=== PATIENT | female | born 1945 | race Caucasian/White ===

== ENCOUNTER 2016-06-26 02:30 | Inpatient (IN) | payer OTHER, MEDICARE ==
[~2016-06-26] VITALS: Ht 165.1 cm; Wt 131.0 kg
[2016-06-26] VITALS (12 sets, daily range): BP systolic 135–189; BP diastolic 53–91
[~2016-06-26 02:30] MED LIST: ADULT LOW DOSE81 M1 PO; ATENOLOL50 MG PO; CLOPIDOGREL75 MG PO; FUROSEMIDE40 MG PO; HYDROCODON-ACE1 EACH PO; METHOCARBAMOL500 MG; PROTONIX40 MG PO; ROBAXIN500 MG PO; TRAMADOL HCL50 MG PO; VITAMIN B-12500 MC2 PO; VITAMIN D1000 INTUN PO; [UNRECOGNIZED DRUG - CODE] IH
[2016-06-26 02:53] LABS: POTASSIUM 4.3 mEq/L (3.7-5.4)
[2016-06-26 03:13] LABS: EOSINOPHIL (%) 0.8 % (0-5); EOSINOPHIL COUNT 0.1 K/uL (0-0.3); HEMATOCRIT 43.7 % (36.0-46.0); IMMATURE GRANULOCYTE (%) 0.5 % (0.0-0.7); IMMATURE GRANULOCYTE COUNT 0.5 K/uL; LYMPHOCYTE COUNT 1.6 K/uL (1.0-2.8); MCH 30.7 PG (29.0-34.0); MCHC 34.3 G/DL (30.0-36.0); MCV 89.5 FL (83-99); MEAN PLAT.VOLUME 10.2 uM^3 (9.5-12.4); MONOCYTE (%) 5.8 % (3-12); MONOCYTE COUNT 0.6 K/uL (0-0.8); NEUTROPHIL COUNT 7.3 K/uL (1.8-6.4); PLATELET COUNT 225 K/uL (156-360); RBC DIS.WIDTH-CV 13.8 % (11.8-14.6); RBC DIS.WIDTH-SD 44.3 % (39-53); RED BLOOD COUNT 4.88 M/uL (3.80-5.20); WHITE BLOOD COUNT 9.6 K/uL (4.1-10.2)
[2016-06-26 03:20] LABS: PROTHROMBIN TIME 10.1 (9.2-11.2); PTT 25.8 (25-32)
[2016-06-26 03:31] LABS: TROP-I INTERPRETATION NEGATIVE; TROPONIN-I < 0.01 ng/mL (0.0-0.30)
[2016-06-26 03:59] LABS: D-DIMER ELISA 0.74 mg/L FEU (< 0.57)
[2016-06-26 04:18] LABS: CHLORIDE 106 mEq/L (99-109); POTASSIUM 5.5 mEq/L (3.7-5.4); SODIUM 139 mEq/L (136-147)
[2016-06-26 04:20] LABS: GLUCOSE 143 mg/dL (70-99)
[2016-06-26 04:21] LABS: ANION GAP 12 MEQ/L (2-14)
[2016-06-26 04:23] LABS: SERUM ETHYL ALCOHOL < 10 mg/dL
[2016-06-26 04:24] LABS: BICARBONATE 23.5 mEq/L (22-26); CARBOXY HGB 1.7 % (0-5); COMMENTS - BLOOD GASES C+A+; DEVICE ROOM AIR; FI02 21 %; METHEMOGLOBIN 1.1 % (0-1.5); PCO2 38 mm Hg (35-45); PO2 70 mm Hg (80-100); SITE RR; TOTAL RESP RATE 21 resp/min
[2016-06-26 04:24] LABS: GFR ESTIMATE (CALCULATED) 52 mL/min/
[2016-06-26 04:26] LABS: UREA NITROGEN (BUN) 19 mg/dL (9-23)
[2016-06-26 04:27] LABS: AMPHETAMINE NEGATIVE (500 ng/mL); BARBITURATES NEGATIVE (200 ng/mL); BENZODIAZEPINES NEGATIVE (150 ng/mL); COCAINE NEGATIVE (150 ng/mL); INTERNAL CONTROLS VALID? YES; METHADONE NEGATIVE (200 ng/mL); METHAMPHETAMINE NEGATIVE (500 ng/mL); OPIATES (MORPHINE) NEGATIVE (100 ng/mL); OXYCODONE NEGATIVE (100 ng/mL); PHENCYCLIDINE NEGATIVE (25 ng/mL); PROPOXYPHENE NEGATIVE (300 ng/mL); THC CANNABINOIDS NEGATIVE (50 ng/mL); TRICYCLIC ANTIDEPRESSANTS NEGATIVE (300 ng/mL)
[2016-06-26 04:27] LABS: SALICYLATE < 5.0 MG/DL (15-30)
[2016-06-26 04:41] LABS: ADD MIUA? NO; BILIRUBIN NEGATIVE; BLOOD NEGATIVE; COLOR YELLOW ((YELLOW)); GLUCOSE (STRIP) NEGATIVE; KETONES NEGATIVE; LEUKOCYTES NEGATIVE; NITRITE NEGATIVE; PROTEIN (STRIP) NEGATIVE; SPECIFIC GRAVITY 1.036 (1.000-1.030); UCUL ADDED? NO; UROBILINOGEN 0.2 MG/DL (0.2-1.0)
[2016-06-26 04:57] LABS: CREATINE KINASE 107 IU/L (1-294); HDL CHOLESTEROL 40 MG/DL (Desirable>=50); LDL CHOLESTEROL 152 mg/dL (Desirable<100); NON-HDL CHOLESTEROL 188 mg/dL (Desirable<160); TOTAL CHOLESTEROL 228 mg/dL (Desirable<200); TRIGLYCERIDES 179 MG/DL (Normal: <150)
[2016-06-26 07:25] LABS: Estimated Average Glucose 114 mg/dL (70-123); HEMOGLOBIN A1c (GLYCOHEMOGLOB) 5.6 % HGB (Below 5.7)
[2016-06-26 09:10] LABS: INFLUENZA A VIRAL ANTIGEN NEGATIVE; INFLUENZA B VIRAL ANTIGEN NEGATIVE
[2016-06-26] MEDS ORDERED: HYDROCODON-ACE1 EAC7 PO (09:57)
[2016-06-26] MEDS ORDERED: PANTOPRAZOLE SO40 MG PO (09:57)
[2016-06-26 14:02] LABS: METH RESISTANT S AUREUS PCR NEGATIVE (NEGATIVE)
[2016-06-26 14:03] LABS: PROBE CHECK PASS; SPECIMEN PROCESSING CONTROL PASS
[2016-06-26 17:59] LABS: APPEARANCE CLEAR/COLORLESS; RED CELL AREA COUNTED 8; RED CELL COUNT 503 /MM^3 (0-1); RED CELL DILUTION 1; WBC AREA COUNTED 18; WBC DILUTION 1; WHITE CELL COUNT 8 /MM^3 (0-5); WHITE CELL RAW COUNT 15
[2016-06-26 18:00] LABS: CSF EOSINOPHILS 0 % (0-25); MONO RAW COUNT 32; MONONUCLEAR WBC'S 32 % (50-90); POLY RAW COUNT 68; POLYNUCLEAR WBC'S 68 % (0-3)
[2016-06-26 18:01] LABS: CSF TUBE NUMBER (RECHECK) TUBE #1
[2016-06-26 18:02] LABS: APPEARANCE (RECHECK) CLEAR/COLORLESS; RED CELL AREA COUNTED 8; RED CELL COUNT (RECHECK) 529 /MM^3 (0-1); RED CELL DILUTION 1
[2016-06-27] VITALS (11 sets, daily range): BP systolic 100–155; BP diastolic 57–72
[2016-06-27 05:29] LABS: HEMATOCRIT 40.1 % (36.0-46.0); MCH 30.8 PG (29.0-34.0); MCHC 33.7 G/DL (30.0-36.0); MCV 91.6 FL (83-99); MEAN PLAT.VOLUME 11.1 uM^3 (9.5-12.4); PLATELET COUNT 200 K/uL (156-360); RBC DIS.WIDTH-CV 14.3 % (11.8-14.6); RBC DIS.WIDTH-SD 47.7 % (39-53); RED BLOOD COUNT 4.38 M/uL (3.80-5.20); WHITE BLOOD COUNT 12.3 K/uL (4.1-10.2)
[2016-06-27 07:34] LABS: ANION GAP 9 MEQ/L (2-14); CHLORIDE 109 MEQ/L (99-109); POTASSIUM 3.8 MEQ/L (3.7-5.4); SAMPLE HEMOLYSIS CHECK 0; SAMPLE ICTERIC CHECK 0; SAMPLE LIPEMIA CHECK 0; SODIUM 141 MEQ/L (136-147)
[2016-06-27 07:39] LABS: GFR ESTIMATE (CALCULATED) > 59 mL/min/; GLUCOSE 131 mg/dL (70-99); UREA NITROGEN (BUN) 14 mg/dL (9-23)
[2016-06-28 03:20] VITALS: BP 128/73
[2016-06-28 07:14] VITALS: BP 144/69
[2016-06-28 07:50] LABS: ANION GAP 10 MEQ/L (2-14); CHLORIDE 107 MEQ/L (99-109); GFR ESTIMATE (CALCULATED) > 59 mL/min/; GLUCOSE 102 mg/dL (70-99); MAGNESIUM 2.1 mg/dl (1.3-2.7); POTASSIUM 4.2 MEQ/L (3.7-5.4); SAMPLE HEMOLYSIS CHECK 0; SAMPLE ICTERIC CHECK 0; SAMPLE LIPEMIA CHECK 0; SODIUM 138 MEQ/L (136-147)
[2016-06-28 08:03] LABS: UREA NITROGEN (BUN) 25 mg/dL (9-23)
[2016-06-28 08:06] LABS: HEMATOCRIT 39.2 % (36.0-46.0); MCH 30.9 PG (29.0-34.0); MCHC 33.2 G/DL (30.0-36.0); MCV 93.1 FL (83-99); MEAN PLAT.VOLUME 10.8 uM^3 (9.5-12.4); PLAT.SUFFICIENCY ADEQUATE; PLATELET COUNT 192 K/uL (156-360); RBC DIS.WIDTH-CV 14.7 % (11.8-14.6); RBC DIS.WIDTH-SD 50.2 % (39-53); RED BLOOD COUNT 4.21 M/uL (3.80-5.20); USER ID CL
[2016-06-28 08:25] LABS: WHITE BLOOD COUNT 17.6 K/uL (4.1-10.2)
[2016-06-28 11:43] VITALS: BP 147/71
[2016-06-28 14:33] LABS: DELETE MACHINE DIFF? YES
[2016-06-28 15:12] VITALS: BP 138/65
[2016-06-28 20:05] VITALS: BP 134/70
[2016-06-28 23:12] VITALS: BP 128/71
[2016-06-29 03:27] VITALS: BP 130/60
[2016-06-29 06:43] LABS: EOSINOPHIL (%) 0.9 % (0-5); EOSINOPHIL COUNT 0.1 K/uL (0-0.3); HEMATOCRIT 40.8 % (36.0-46.0); IMMATURE GRANULOCYTE (%) 0.8 % (0.0-0.7); IMMATURE GRANULOCYTE COUNT 0.1 K/uL; LYMPHOCYTE COUNT 2.8 K/uL (1.0-2.8); MCH 29.6 PG (29.0-34.0); MCHC 32.1 G/DL (30.0-36.0); MCV 92.3 FL (83-99); MEAN PLAT.VOLUME 10.7 uM^3 (9.5-12.4); MONOCYTE (%) 8.3 % (3-12); MONOCYTE COUNT 0.9 K/uL (0-0.8); NEUTROPHIL (%) 65.4 % (45-76); NEUTROPHIL COUNT 7.4 K/uL (1.8-6.4); PLATELET COUNT 192 K/uL (156-360); RBC DIS.WIDTH-CV 14.6 % (11.8-14.6); RBC DIS.WIDTH-SD 49.8 % (39-53); RED BLOOD COUNT 4.42 M/uL (3.80-5.20); WHITE BLOOD COUNT 11.3 K/uL (4.1-10.2)
[2016-06-29 06:47] LABS: ALKALINE PHOSPHATASE 50 IU/L (3-129); ANION GAP 6 MEQ/L (2-14); CHLORIDE 108 MEQ/L (99-109); GFR ESTIMATE (CALCULATED) 58 mL/min/; GLUCOSE 89 mg/dL (70-99); POTASSIUM 3.7 MEQ/L (3.7-5.4); SAMPLE HEMOLYSIS CHECK 0; SAMPLE ICTERIC CHECK 0; SAMPLE LIPEMIA CHECK 0; SODIUM 138 MEQ/L (136-147); TOTAL BILIRUBIN 0.4 MG/DL (0.0-1.0); UREA NITROGEN (BUN) 26 mg/dL (9-23)
[2016-06-29 07:22] VITALS: BP 133/63
[2016-06-29 11:07] VITALS: BP 120/55
[2016-06-29] MEDS ORDERED: LIDOCAINE700 MG TD (14:06)
[2016-06-29] MEDS ORDERED: PRAVASTATIN SOD80 MG PO (14:07)
[2016-06-29] MEDS ORDERED: AMLODIPINE BESYL5 MG PO (14:08)
[2016-06-29] MEDS ORDERED: TRAMADOL HCL50 MG PO (14:09)
[2016-06-29 15:18] VITALS: BP 137/69
== END 2016-06-29 17:08 | DRG 77 ==
LOC: EME → EDBD 02:30 → 5EAST 06:12 → 4WEST 06:12 → EDOF 06:12 → 4WEST 11:32 → 5EAST 06-27 12:19
PROVIDERS: Emergency Medicine; Hospitalist; Internal Medicine
PROC: 009U3ZX Drainage of Spinal Canal, Percutaneous Approach, Diagnostic (ICD-10-PCS; principal; 2016-06-26)
DX: I67.4 Hypertensive encephalopathy (principal); I16.0 Hypertensive urgency; A41.9 Sepsis, unspecified organism; B34.9 Viral infection, unspecified; E87.2 Acidosis; E66.01 Morbid (severe) obesity due to excess calories; J44.9 Chronic obstructive pulmonary disease, unspecified; J45.909 Unspecified asthma, uncomplicated; K21.9 Gastro-esophageal reflux disease without esophagitis; I25.10 Atherosclerotic heart disease of native coronary artery without angina pectoris; E86.0 Dehydration; G89.29 Other chronic pain; R51 Headache; Z79.82 Long term (current) use of aspirin; Z79.02 Long term (current) use of antithrombotics/antiplatelets; Z87.891 Personal history of nicotine dependence; Z88.1 Allergy status to other antibiotic agents; Z95.5 Presence of coronary angioplasty implant and graft; Z86.73 Personal history of transient ischemic attack (TIA), and cerebral infarction without residual deficits
CPT/HCPCS: 36600; 62270; 70496; 70498; 70551; 71010; 71100; 71250; 74176; 77003; 80047; 80048; 80048 91; 80053; 80061; 81003; 82550; 82803; 82945; 83036; 83605; 83735; 83880; 84157; 84484; 85025; 85027; 85379; 85610; 85730; 87040; 87070; 87205; 87502; 87641; 89051; 93005; 94010; 94640; 95819; 99202; 99281; 99285; G0480; J0360; J0456; J0696; J0780; J1200; J1644; J2270; J2405; J2920; J2930; J3370; J7030; J7040; J7050

== ENCOUNTER 2017-05-16 16:16 | Emergency (ER) | payer OTHER, MEDICARE ==
[~2017-05-16] VITALS: Ht 167.6 cm; Wt 133.9 kg
[~2017-05-16 16:16] MED LIST changes: +AMLODIPINE BESYL5 MG PO; +HYDROCODON-ACE1 EAC7 PO; +LIDOCAINE700 MG TD; +PANTOPRAZOLE SO40 MG PO; +PRAVASTATIN SOD80 MG PO
[2017-05-16 17:56] LABS: BASOPHIL (%) 0.4 % (0-1); EOSINOPHIL (%) 3.5 % (0-5); EOSINOPHIL COUNT 0.3 K/uL (0-0.3); HEMATOCRIT 44.2 % (36.0-46.0); HEMOGLOBIN 15.1 G/DL (11.9-15.5); IMMATURE GRANULOCYTE (%) 0.6 % (0.0-0.7); LYMPHOCYTE (%) 20.4 % (15-42); LYMPHOCYTE COUNT 1.9 K/uL (1.0-2.8); MCH 30.6 PG (29.0-34.0); MCHC 34.2 G/DL (30.0-36.0); MCV 89.5 FL (83-99); MONOCYTE COUNT 0.6 K/uL (0-0.8); NEUTROPHIL (%) 69.1 % (45-76); NEUTROPHIL COUNT 6.4 K/uL (1.8-6.4); PLATELET COUNT 231 K/uL (156-360); RBC DIS.WIDTH-CV 13.9 % (11.8-14.6); RBC DIS.WIDTH-SD 45.3 % (39-53); RED BLOOD COUNT 4.94 M/uL (3.80-5.20); WHITE BLOOD COUNT 9.3 K/uL (4.1-10.2)
[2017-05-16 18:11] LABS: CHLORIDE 105 mEq/L (99-109); POTASSIUM 4.1 mEq/L (3.7-5.4); SODIUM 140 mEq/L (136-147)
[2017-05-16 18:12] LABS: MAGNESIUM 2.2 mg/dL (1.3-2.7)
[2017-05-16 18:13] LABS: GLUCOSE 97 mg/dL (70-99)
[2017-05-16 18:17] LABS: CREATININE 0.9 mg/dL (0.6-1.3); GFR ESTIMATE (CALCULATED) > 59 mL/min/
[2017-05-16 18:18] LABS: UREA NITROGEN (BUN) 21 mg/dL (9-23)
[2017-05-16 18:22] LABS: TROP-I INTERPRETATION NEGATIVE; TROPONIN-I < 0.01 ng/mL (0.0-0.30)
[2017-05-16] MEDS ORDERED: VENTOLIN HFA18 GM IH (20:17)
[2017-05-16] MEDS ORDERED: ZITHROMAX Z-PA250 MG PO (20:17)
[2017-05-16 20:34] VITALS: BP 123/72
== END 2017-05-16 20:50 | disposition home or self-care (01) ==
LOC: EME 16:16
PROVIDERS: Emergency Medicine
DX: J44.0 Chronic obstructive pulmonary disease with (acute) lower respiratory infection (principal); J20.9 Acute bronchitis, unspecified; K21.9 Gastro-esophageal reflux disease without esophagitis; I10 Essential (primary) hypertension; F32.9 Major depressive disorder, single episode, unspecified; Z87.891 Personal history of nicotine dependence; Z86.718 Personal history of other venous thrombosis and embolism; Z86.73 Personal history of transient ischemic attack (TIA), and cerebral infarction without residual deficits; Z88.5 Allergy status to narcotic agent; Z88.1 Allergy status to other antibiotic agents; Z88.8 Allergy status to other drugs, medicaments and biological substances
CPT/HCPCS: 71045; 71275; 80048; 83735; 83880; 84484; 85025; 85610; 85730; 93005; 99281; 99285; J7030

== ENCOUNTER 2017-10-20 22:22 | Observation (INO) | payer OTHER, MEDICARE ==
[~2017-10-20] VITALS: Ht 167.6 cm; Wt 132.8 kg
[~2017-10-20 22:22] MED LIST changes: +VENTOLIN HFA18 GM IH; +ZITHROMAX Z-PA250 MG PO
[2017-10-20 23:35] LABS: HEMATOCRIT 41.1 % (36.0-46.0); MCH 30.6 PG (29.0-34.0); MCHC 34.1 G/DL (30.0-36.0); MCV 89.9 FL (83-99); PLATELET COUNT 214 K/uL (156-360); RBC DIS.WIDTH-SD 46.5 % (39-53); RED BLOOD COUNT 4.57 M/uL (3.80-5.20); WHITE BLOOD COUNT 10.8 K/uL (4.1-10.2)
[2017-10-20 23:45] LABS: ALBUMIN 3.8 g/dL (3.2-4.8)
[2017-10-20 23:46] LABS: CHLORIDE 103 mEq/L (99-109); POTASSIUM 3.9 mEq/L (3.7-5.4); SODIUM 139 mEq/L (136-147)
[2017-10-20 23:48] LABS: GLUCOSE 103 mg/dL (70-99); TOTAL PROTEIN 6.5 g/dL (6.4-8.3)
[2017-10-20 23:50] LABS: TOTAL BILIRUBIN 0.5 mg/dL (0.0-1.0)
[2017-10-20 23:51] LABS: ALKALINE PHOSPHATASE 83 IU/L (3-129)
[2017-10-20 23:52] LABS: CREATININE 1.1 mg/dL (0.6-1.3); GFR ESTIMATE (CALCULATED) 52 mL/min/
[2017-10-20 23:53] LABS: AST (GOT) 15 IU/L (2-34); UREA NITROGEN (BUN) 21 mg/dL (9-23)
[2017-10-20 23:55] LABS: ALT (GPT) 14 IU/L (3-49); LIPASE 17 U/L (1.0-51.0)
[2017-10-21 01:46] LABS: APPEARANCE CLEAR ((CLEAR)); BILIRUBIN NEGATIVE; BLOOD NEGATIVE; COLOR YELLOW ((YELLOW)); GLUCOSE (STRIP) NEGATIVE; KETONES NEGATIVE; LEUKOCYTES NEGATIVE; NITRITE NEGATIVE; PROTEIN (STRIP) NEGATIVE; SPECIFIC GRAVITY 1.024 (1.000-1.030); UCUL ADDED? NO; UROBILINOGEN 0.2 MG/DL (0.2-1.0)
[2017-10-21] MEDS ORDERED: COREG25 M1 PO (06:02)
[2017-10-21 09:12] VITALS: BP 119/65
[2017-10-21] MEDS ORDERED: COZAAR25 MG PO (09:50)
[2017-10-21] MEDS ORDERED: ASPIRIN81 M2 PO (09:50)
[2017-10-21] MEDS ORDERED: HYDROCHLOROTH12.5 M3 PO (09:51)
[2017-10-21] MEDS ORDERED: MINOCYCLINE HC100 MG PO (09:52)
[2017-10-21] MEDS ORDERED: K-DUR20 MEQ PO (09:53)
[2017-10-21] MEDS ORDERED: LIDOCAINE700 MG TP (12:50)
[2017-10-21] MEDS ORDERED: TYLENOL ARTHRI650 MG PO (12:53)
[2017-10-21] MEDS ORDERED: LOW DOSE ASPIRI81 M1 PO (12:53)
[2017-10-21 13:44] LABS: HEMATOCRIT 41.8 % (36.0-46.0); MCH 30.3 PG (29.0-34.0); MCHC 33.5 G/DL (30.0-36.0); MCV 90.5 FL (83-99); NRBC (%) 0.5 /100 WBC (0-0); PLATELET COUNT 242 K/uL (156-360); RBC DIS.WIDTH-CV 14.1 % (11.8-14.6); RBC DIS.WIDTH-SD 46.9 % (39-53); RED BLOOD COUNT 4.62 M/uL (3.80-5.20); WHITE BLOOD COUNT 9.3 K/uL (4.1-10.2)
[2017-10-21 15:23] VITALS: BP 138/80
[2017-10-21 19:48] VITALS: BP 136/79
[2017-10-22 00:01] VITALS: BP 111/56
[2017-10-22 11:09] VITALS: BP 118/59
[2017-10-22] MEDS ORDERED: CYCLOBENZAPRINE5 MG PO (15:12)
[2017-10-22] MEDS ORDERED: MEDROL DOSEPAK4 MG PO (15:14)
[2017-10-22] MEDS ORDERED: CELECOXIB200 MG PO (15:14)
[2017-10-22] MEDS ORDERED: HYDROCODON-ACE1 EAC7 PO (15:16)
[2017-10-22 16:19] VITALS: BP 137/65
== END 2017-10-22 17:52 | disposition home or self-care (01) ==
LOC: EME → EDBD 22:22 → EDOF 10-21 05:11 → 4SOUTH 10-21 05:11 → EDOF 10-21 05:11 → ENRESERV 10-21 05:13 → 4SOUTH 10-21 08:27
PROVIDERS: Emergency Medicine; Internal Medicine
DX: M54.2 Cervicalgia (principal); R51 Headache; I12.9 Hypertensive chronic kidney disease with stage 1 through stage 4 chronic kidney disease, or unspecified chronic kidney disease; N18.3 Chronic kidney disease, stage 3 (moderate); I25.10 Atherosclerotic heart disease of native coronary artery without angina pectoris; Z86.19 Personal history of other infectious and parasitic diseases; G89.29 Other chronic pain; M50.223 Other cervical disc displacement at C6-C7 level; E66.01 Morbid (severe) obesity due to excess calories; Z68.42 Body mass index [BMI] 45.0-49.9, adult; Z95.5 Presence of coronary angioplasty implant and graft; Z86.73 Personal history of transient ischemic attack (TIA), and cerebral infarction without residual deficits; J44.9 Chronic obstructive pulmonary disease, unspecified; D72.829 Elevated white blood cell count, unspecified; K21.9 Gastro-esophageal reflux disease without esophagitis; Z87.19 Personal history of other diseases of the digestive system; Z90.710 Acquired absence of both cervix and uterus; Z90.81 Acquired absence of spleen; Z96.643 Presence of artificial hip joint, bilateral; Z96.652 Presence of left artificial knee joint; Z88.1 Allergy status to other antibiotic agents; Z88.5 Allergy status to narcotic agent; Z88.8 Allergy status to other drugs, medicaments and biological substances; Z79.82 Long term (current) use of aspirin; Z79.02 Long term (current) use of antithrombotics/antiplatelets
CPT/HCPCS: 70496; 70498; 70551; 72141; 80053; 81003; 83690; 85027; 94799; 99202; 99281; 99285; G0378; G8978 GP CH; G8979 GP CH; G8980 GP CH; G8987 GO CH; G8988 GO CH; G8989 GO CH; J0780; J1200; J1644; J1885; J2405; J3010; J7030; J7509